=== PATIENT | female | born 1980 | race Caucasian/White ===

== ENCOUNTER 2018-04-15 16:40 | Outpatient (CLI) | payer OTHER ==
[2013-08-17 20:55] VITALS: BP 149/76
--- NOTE | 2018-04-16 00:10 | Diagnostic Imaging Report ---
MAY BATISTA [facility] [address] Formerly [facility], [facility] [address] [address] Report Submission Date: Apr 15, 2018 6:38:54 PM CDT Patient Study Name: MERLYN GARG Date: Apr 15, 2018 4:49:08 PM CDT Modality Type: DX Gender: F Description: PELVIS : 82 Institution: [facility] Physician: MAY BATISTA Bilateral hips, two views. History: Hip pain for several years. Findings: Right: The osseous structures of the right hip are intact. The femoral head is well seated within the acetabulum. No significant joint space narrowing. The imaged portion of the right pietro pelvis is intact. Left: The osseous structures of the left hip are intact. No significant joint space narrowing is present. The imaged portion the left hemipelvis is intact. No soft tissue abnormality. Impression: 1. No osseous abnormality or significant degenerative change. Electronically signed on Apr 15, 2018 6:38:54 PM CDT by: David LEBLANC
== END 2018-04-15 16:42 ==
LOC: RAD 16:40
PROVIDERS: ATTEND Family Medicine
DX: M25.551 Pain in right hip (principal)
CPT/HCPCS: 73521

== ENCOUNTER 2018-12-06 08:40 | Emergency (ER) | payer OTHER ==
[2013-08-17 20:55] VITALS: BP 149/76
[2018-12-06] MEDS ORDERED: KETOROLAC TROMETHAMINE 60 MG/2 ML VIAL IM ONE (09:00)
--- NOTE | 2019-01-20 14:28 | Diagnostic Imaging Report ---
EDUAR ULRICH [facility] [address] [facility] [address] Report Submission Date: Dec 06, 2018 9:27:38 AM CDT Patient Study Name: MERLYN GARG Date: Dec 06, 2018 9:10:21 AM CDT Modality Type: DX Gender: F Description: PELVIS AP 1 OR 2 VIEWS : 82 Institution: [facility] Physician: EDUAR ULRICH Exam: AP pelvis. History: Pelvic pain right side more so the than the left. The visualized bony elements are grossly intact without fracture or dislocation. No bony erosions are seen. No soft tissue abnormality is identified. Impression: No bony abnormality. Electronically signed on Dec 06, 2018 9:27:38 AM CDT by: Sergio LEBLANC
== END 2018-12-06 10:04 ==
LOC: ED 08:40
DX: S76.011A Strain of muscle, fascia and tendon of right hip, initial encounter (principal); W01.0XXA Fall on same level from slipping, tripping and stumbling without subsequent striking against object, initial encounter; Y99.8 Other external cause status
CPT/HCPCS: 72170; 81025; J1885; J3360

== ENCOUNTER 2019-07-09 23:19 | Emergency (ER) | payer OTHER ==
[2019-07-10] MEDS ORDERED: FLUORESCEIN SODIUM 1 STRIP TEST OD ONE (00:15)
[2019-07-10] MEDS: FLUORESCEIN SODIUM 1 STRIP TEST ONE (00:18)
[2019-07-10] MEDS: ACYCLOVIR 200 MG CAPSULE PO ONE (00:37)
--- NOTE | 2019-07-10 00:38 | ED Physician Documentation ---
General Adult - HISTORIAN Historian: patient - HPI Stated Complaint: blurred vision left eye Chief Complaint: General Adult Onset: hours Timing: still present Severity: moderate Further Comments: yes (Pt is a 39 yo female with complaints of eye pain and blurry vision in her L eye that began today. Pt has not had fever, n/v. No previous episodes of this. Pt has also had tearing.) - ROS CONST: no problems EYES/ENT: other (L eye pain, injection, tearing, blurred vision) CVS/RESP: none GI/: none MS/SKIN/LYMPH: none - PAST HX Past History: other (anxiety, asthma, migraine, thyroid d/o) Allergies/Adverse Reactions: Allergies Allergy/AdvReac Type Severity Reaction Status Date / Time No Known Allergies Allergy Verified 07/09/19 23:36 - SOCIAL HX Smoking History: non-smoker - FAMILY HX Family History: No - VITAL SIGNS Vital Signs: Vital Signs Temp Pulse Resp BP Pulse Ox 97.2 F L 62 15 162/70 99 07/09/19 23:23 07/09/19 23:49 07/09/19 23:49 07/09/19 23:49 07/09/19 23:49 - REVIEWED ASSESSMENTS Nursing Assessment Reviewed: Yes Vitals Reviewed: Yes Progress - Progress Progress: 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, Dr. Botello. Will rx acyclovir 5x/daily po, 1st dose in ER. [facility] will call pt in the am to be seen tomorrow. ED Results Lab/Radiology - Orders Orders: ED Orders Category Date Time Status Acyclovir [Zovirax] Med 07/10/19 00:24 Once 400 mg PO NOW ONE Fluorescein Sodium [Bioglo Test Strip] Med 07/10/19 00:05 Discontinued 1 strip .ROUTE .STK-MED ONE Fluorescein Sodium [Bioglo Test Strip] Med 07/10/19 00:15 Discontinued 1 strip OD NOW ONE General Adult Physical Exam - PHYSICAL EXAM GENERAL APPEARANCE: mild distress EENT: other (scleral injection, gelatinous substance adherent to eye, overriding cornea with fluoresceine uptake) NECK: normal inspection, supple RESPIRATORY: no resp distress, chest non-tender, breath sounds normal CVS: reg rate & rhythm, heart sounds normal BACK: normal inspection, no CVA tenderness SKIN: warm/dry, normal color EXTREMITIES: non-tender, normal range of motion, no evidence of injury NEURO: oriented X3, motor nml, sensation nml Discharge Clincal Impression: eye lesion, 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
[2019-07-10 00:44] VITALS: BP 145/88
== END 2019-07-10 00:35 | disposition home or self-care (01) ==
LOC: ED 23:19
DX: H57.89 Other specified disorders of eye and adnexa (principal)
CPT/HCPCS: 99283; 99284